=== PATIENT | male | born 1985 | race Caucasian/White ===

== ENCOUNTER 2024-12-15 18:12 | Emergency (ER) | payer BC, SELFPAY ==
[2024-12-15] VITALS (7 sets, daily range): BP systolic 169; BP diastolic 105; PULSE 80–116; RESP 16; TEMP 37.3; O2SAT 95–98; BMI 28.4
--- OUTSIDE RECORDS SUMMARY | 2024-12-15 18:16 | XMS_ITS | Clinical Summary ---
Author Organization [employer] [facility] Address [place], [place] [address] Care Team Providers Care Mate First Name Role Phone Behzad Weller MD Primary Care Provider Allergies Active Allergy Reactions Criticality Noted Date Comments Duloxetine Other - Describe In Comment Field High 03/14/2022 Temper, Anger Latex Rash,Dyspnea High 02/18/2019 Medications gemfibroziL (LOPID) 600 mg tablet Take 600 mg by mouth. 09/22/20 21 Active naloxone (Narcan) 4 mg/actuation nasal sprayIndicatio ns:Neck pain, chronic Inhale 1 [place] into affected nostril(s) each time if needed for Patient Diff To Arouse or Resp Rate < 8 / min. Additional doses may be given every 2 to 3 minutes until emergency medical assistance arrives. 2 Each 01/25/20 23 Active oxyCODONE (ROXICODONE) 5 mg immediate release tabletIndicati ons:Neck pain, chronic Take 1 Tablet (5 mg) by mouth every 6 hours if needed for Pain. 120 Tablet 09/23/20 24 Active zolpidem CR (AMBIEN CR) 12.5 mg Extended-Relea se tabletIndicati ons:Insomnia, idiopathic Take 1 Tablet (12.5 mg) by mouth at bedtime. 30 Tablet 2 09/23/20 24 Active amLODIPine (NORVASC) 10 mg tabletIndicati ons:HTN (hypertension) Take 1 Tablet (10 mg) by mouth once daily. 90 Tablet 1 09/23/20 24 Active oxyCODONE (ROXICODONE) 5 mg immediate release tabletIndicati ons:Neck pain, chronic Take 1 Tablet (5 mg) by mouth every 6 hours if needed for Pain. 120 Tablet 11/22/19 25 Active oxyCODONE (ROXICODONE) 5 mg immediate release tabletIndicati ons:Neck pain, chronic Take 1 Tablet (5 mg) by mouth every 6 hours if needed for Pain. 120 Tablet 11/04/20 24 Active tiZANidine (ZANAFLEX) 4 mg tabletIndicati ons:Muscle pain TAKE ONE AND ONE-HALF TABLETS BY MOUTH EVERY 8 HOURS NEEDED FOR MUSCLE SPASMS 45 Tablet 2 12/03/19 25 Active methylPREDNISo lone (MEDROL DOSEPAK) 4 mg tabletIndicati ons:Acute left-sided low back pain with left-sided sciatica Take by mouth as instructed per packaging. 21 Tablet 12/10/19 25 Active tiZANidine (ZANAFLEX) 4 mg tabletIndicati ons:Muscle pain TAKE ONE AND ONE-HALF TABLETS BY MOUTH EVERY 8 HOURS NEEDED FOR MUSCLE SPASMS 45 Tablet 2 09/23/20 24 025 Discontinued Active Problems Problem Noted Date Diagnosed Date Pain management contract agreement 02/03/2023 Overview (03/13/2023): Chronic neck pain Takes Oxycodone 1-2 tabs every 4 hours prn no more than 6 a day. HTN (hypertension) 07/14/2022 Generalized anxiety disorder 07/14/2022 Insomnia, idiopathic 07/14/2022 Encounters Date Type Department Care Team Description 12/15/2024 Nurse Triage [facility] [address] [place] [address] Behzad Weller MD 12/09/2024 11:46 PM CLIENT SERVICES REPRESENTATIVE - 12/10/2024 1:37 AM [facility] Emergency [facility] [address] [place] [address] Matty Rivera MD Acute left-sided low back pain with left-sided sciatica (Primary Dx); HTN (hypertension) Discharge Disposition: Home Self Care 12/09/2024 Travel 12/03/2024 Refill [facility] [address] [place] [address] Behzad Weller MD Refill Request (Tizanidine) 11/04/2024 Telephone [facility] [address] [place] [address] Behzad Weller MD Refill Request (oxyCODONE ) 10/31/2024 Refill [facility] [address] [place] [address] Behzad Weller MD Refill Request (Oxycodone, Oxycodone) 09/23/2024 1:30 PM CLIENT SERVICES REPRESENTATIVE Office Visit [address] [phone] Behzad Weller MD Medication Management 09/22/2024 Travel from Last 3 Months Immunizations Name Administration Dates Next Due COVID-19 vaccine ([employer] 30mcg/0.3mL) P F, MDV 06/14/2021 MMR 12/09/1996,05/10/1995 Td (Age >=7 Years) 07/18/2005,12/09/1996 Tdap 01/26/2020 Family History Medical History Relation Name Comments Bipolar disorder Mother of fen tanyl overdose Relation Name Status Comments Father of traumat ic injury. Mother Social History Tobacco Use Types Packs/Day Years Used Date Smoking Tobacco: Never Smokeless Tobacco: Former Chew Quit: 05/23/2023 Tobacco Cessation:Counseling Given: Not Answered Alcohol Use Standard Drinks/Week Comments Not Currently 0 (1 standard drink = 0.6 oz pure alcohol) occasionally wine, beer or likquor PHQ-2 Answer Date Recorded PHQ-2 TOTAL SCORE 2 06/06/2023 Social Connections Answer Date Recorded Do you often feel lonely or isolated from those around you? 0 09/22/2024 Financial Resource Strain Answer Date R ecorded Difficulty of Paying Living Expenses 3 09/22/2024 Difficulty of Paying Living Expenses Not on file 09/22/2024 Food Insecurity Answer Date Recorded Do you worry your food will run out before you are able to buy more? 1 09/22/2024 Transportation Needs Answer Date Record ed Does lack of transportation keep you from medica l appointments? 1 09/22/2024 Does lack of transportation keep you from work, meetings or getting things that you need? 1 09/22/2024 Housing Stability Answer Date Recorded What is your housing situation today? 1 09/22/2024 Interpersonal Safety Answer Date Record ed Are you being hit, kicked, p ushed or yelled at (see row info)? No 12/09/2024 Interpersonal Safety Abuse 12 - 18 Not on file 12/09/2024 Interpersonal Safety Ambulatory Vulnerability No t on file 12/09/2024 Utilities Answer Date Recorded Do you have trouble paying f or utilities (for example, heat, electricity, water, phone)? 1 09/22/2024 Sex and Gender Information Value Date Recorded Sex Assigned at Not on file Legal Sex Male 6:24 AM CLIENT SERVICES REPRESENTATIVE Gender Identity Not on file Sexual Orientation Not on file Obstetrics History Last Filed Vital Signs Vital Sign Reading Time Taken Comments Blood Pressure 145/124 12/10/2024 1:15 AM CLIENT SERVICES REPRESENTATIVE Pulse 89 12/10/2024 1:15 AM CLIENT SERVICES REPRESENTATIVE Temperature 37.1 C (98.7 F) 12/09/2024 11:50 PM CLIENT SERVICES REPRESENTATIVE Respiratory Rate 16 12/10/2024 1:15 AM CLIENT SERVICES REPRESENTATIVE Oxygen Saturation 98% 12/10/2024 1:15 AM CLIENT SERVICES REPRESENTATIVE Inhaled Oxygen Concentration - - Weight 98 kg (216 lb) 12/09/2024 11:53 PM CLIENT SERVICES REPRESENTATIVE Height 185.4 cm (6' 1) 12/09/2024 11:53 PM CLIENT SERVICES REPRESENTATIVE Body Mass Index 28.5 12/09/2024 11:53 PM CLIENT SERVICES REPRESENTATIVE Plan of Treatment Upcoming Encounters Date Type Department Care Team (Late st Contact Info) Description 12/16/2024 11:10 AM CLIENT SERVICES REPRESENTATIVE Office Visit [facility] [address] [place] [address] Behzad Weller MD [address] [place] [address] Health Maintenance Due Date Last Done Comments HIV for age 15-65 1999 Hepatitis C screening for age 18-79 2002 Depression screening for age 12+ 06/06/2024 06/06/2023, 06/06/2023, 06/05/2023, Additional history exists COVID-19 vaccine series ( season) 2024 06/14/2021 Influenza for age 9-49 07/20/2024 Lipids for age 35-44 09/02/2024 09/02/2019, 09/02/20 19 BMI (ht and wt on same day) for age 18+ 09/23/2025 09/23/2024, 03/05/2024, 12/05/2023, Additional history exists Tetanus booster 01/25/2030 01/26/2020, 06/21, 12/09/1996 Tdap Completed 01/26/2020 Pneumococcal series for age 6-49 Aged Out No longer eligible based on patient's age to complete this topic Procedures Procedure Name Priority Date/Time Associated Diagnosis Comments XR SPINE LUMBAR 2 VIEWS STAT 12/10/2024 12:40 AM CLIENT SERVICES REPRESENTATIVE LIPID PANEL W REFLEX MEASURED LDL Routine 09/02/2019 12:13 PM CDT Well adult exam from Last 3 Months or Most Recently Relevant to Health Maintenance Results * XR SPINE LUMBAR 2 VIEWS (12/10/2024 12:40 AM CLIENT SERVICES REPRESENTATIVE) Anatomical Region Laterality Modality LUMBAR SPINE Digital Radiogra phy 12/10/2024 12:4 3 AM CLIENT SERVICES REPRESENTATIVE Impressions 12/10/2024 12:43 AM CLIENT SERVICES REPRESENTATIVE 1. No acute osseous injuries or abnormalities are noted. Dictated by Edy Bond MD @ 12/10/2024 12:43:09 AM Dictated by: Edy Bond MD @ 12/10/2024 00:43:14 (Electronically Signed) Narrative 12/10/2024 12:43 AM CLIENT SERVICES REPRESENTATIVE For Patients: As a result of the Century Cures Act, medical imaging exams and procedure reports are released immediately into your electronic medical record. You may view this report before your referring provider. If you have questions, please contact your health care provider. INDICATION: Back pain TECHNIQUE: Lumbar spine radiograph 2 views COMPARISON: 06/02/2019 FINDINGS: Bone: No acute fractures or aggressive bone lesions are identified. Alignment is normal. Disc: Moderate degenerative disc narrowing at L5-S1 is noted and progressed since prior exam. The facet joints are unremarkable. Soft tissue: Unremarkable. No radiopaque foreign bodies are seen. Procedure Note Edy Bond MD - 12/10/2024 For Patients: As a result of the Century Cures Act, medical imagingexams and procedure reports are released immediately into your electronicmedical record. You may view this report before your referring provider.If you have questions, please contact your health care provider. INDICATION: Back pain TECHNIQUE: Lumbar spine radiograph 2 views COMPARISON: 06/02/2019 FINDINGS: Bone: No acute fractures or aggressive bone lesions are identified.Alignment is normal. Disc: Moderate degenerative disc narrowing at L5-S1 is noted andprogressed since prior exam. The facet joints are unremarkable. Soft tissue: Unremarkable. No radiopaque foreign bodies are seen. IMPRESSION: 1. No acute osseous injuries or abnormalities are noted. Dictated by Edy Bond MD @ 12/10/2024 12:43:09 AM Dictated by: Edy Bond MD @ 12/10/2024 00:43:14 (Electronically Signed) us Matty Rivera MD GENERAL IMAGING Final Res ult * (ABNORMAL) LIPID PANEL W REFLEX MEASURED LDL (09/02/2019 12:13 PM CDT) CHOLESTEROL,TOTAL 309(H) 100 - 199 mg/dL 09/02/2019 1:48 PM CDT [facility] TRIGLYCERIDES 477(H) <150 mg/dL 09/02/2019 1:48 PM CDT [facility] HDL CHOLESTEROL 50 >40 mg/dL 9 1:48 PM CDT [facility] NON-HDL CHOLESTEROL 259(H) <145 mg/dl 09/02/2019 1:48 PM CDT [facility] CHOL/HDL RATIO 6.18(H) <4.50 09/02/2019 1:48 PM CDT [facility] LDL CHOLESTEROL 9 1:48 PM CDT [facility] Comment:Invalid LDL when Tri g >400, reflexed to measured LDL PROVIDER ORDERED STATUS RANDOM 09/02/2019 1:48 PM CDT [facility] Blood BLOOD SPECIMEN / Unknown Butterfly / Unknown 09/02/2019 12:13 PM CDT 09/02/2019 12:15 PM CDT us Antony Soler MD CHEMISTRY Final R esult [facility] [address] [place] [address] from Last 3 Months or Most Recently Relevant to Health Maintenance Care Teams Mate First Relationship Specialty Start Date End Date Behzad Weller MD [address] [place] [address] PCP - General Family Practice 07/19/22
--- NOTE | 2024-12-15 18:40 | ED.BACK ---
HPI - Back Pain/Injury General Time Seen by Provider: 18:40 Date Seen: 12/15/24 Chief Complaint: Back Injury/Pain Stated Complaint: Back and L Leg pain Time Seen by Provider: 12/15/24 18:40 Source: patient and RN notes reviewed Mode of arrival: ambulatory Limitations: no limitations Related Data Home Medications ?Medication ?Instructions ?Recorded ?Confirmed amlodipine 10 mg tablet 10 mg PO DAILY 12/15/24 12/15/24 oxycodone 5 mg tablet 5 mg PO Q6H PRN pain 12/15/24 12/15/24 tizanidine 4 mg tablet 6 mg PO Q8H PRN muscle spasm 12/15/24 12/15/24 zolpidem 12.5 mg tablet,extended 12.5 mg PO QPM 12/15/24 12/15/24 release,multiphase Allergies Allergy/AdvReac Type Severity Reaction Status Date / Time latex Allergy Unknown Verified 12/15/24 18:37 Exam Const: Vital Signs, click to edit/add: Vital Signs - 24 hr 12/15/24 18:31 Temperature 99.1 F Pulse Rate [Pulse Oximeter] 116 H Respiratory Rate 16 Blood Pressure [Ri ght Upper Arm] 169/105 H Pulse Oximetry 97 Oxygen Delivery Me thod Room Air Course Vital Signs Vital signs: Initial Vital Signs Temperature 99.1 F 12/15/24 18:31 Temperature Source Temporal Artery Scan 12/15/24 18:31 Pulse Rate 116 H 12/15/24 18:31 Respiratory Rate 16 12/15/24 18:31 Blood Pressure 169/105 H 12/15/24 18:31 Blood Pressure Mean 126 H 12/15/24 18:31 Blood Pressure Position Supine 12/15/24 18:31 Pulse Oximetry 97 12/15/24 18:31 Oxygen Delivery Method Room Air 12/15/24 18:31 Vital Signs Temperature 99.1 F 12/15/24 18:31 Pulse Rate 116 H 12/15/24 18:31 Respiratory Rate 16 12/15/24 18:31 Blood Pressure 169/105 H 12/15/24 18:31 Pulse Oximetry 97 12/15/24 18:31 Oxygen Delivery Method Room Air 12/15/24 18:31 Temperature 99.1 F 12/15/24 18:31 Pulse Rate 116 H 12/15/24 18:31 Respiratory Rate 16 12/15/24 18:31 Blood Pressure 169/105 H 12/15/24 18:31 Pulse Oximetry 97 12/15/24 18:31 Oxygen Delivery Method Room Air 12/15/24 18:31 Discharge Plan Discharge Prescriptions: No Action tizanidine 4 mg tablet 6 mg PO Q8H PRN (Reason: muscle spasm) amlodipine 10 mg tablet 10 mg PO DAILY oxycodone 5 mg tablet 5 mg PO Q6H PRN (Reason: pain) zolpidem 12.5 mg tablet,ext release multiphase 12.5 mg PO QPM
--- NOTE | 2024-12-15 18:41 | ED.BACK ---
HPI - Back Pain/Injury General Time Seen by Provider: 18:42 Date Seen: 12/15/24 Chief Complaint: Back Injury/Pain Stated Complaint: Back and L Leg pain Time Seen by Provider: 12/15/24 18:40 Source: patient and RN notes reviewed Mode of arrival: ambulatory Limitations: no limitations History of Present Illness HPI Narrative: This 39-year-old male is coming in with back pain. This started this past Sunday. He just got up to make his daughters dinner, felt some strain in his low back. 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 He is getting pain down into his leg, feels it more in the front of the knee and down into the welch. It is a burning-type sensation. He feels numbness and tingling in this leg as well. Last night his noted that he seemed to be swinging trying to stand up to urinate at the toilet last night. He states he did dribble a little bit overnight becomes tearful talking about that. He did just urinate prior to coming in. He has had no bowel issues, no bowel incontinence, no difficulty going. He is a nonsmoker but does use chewing tobacco. He has no known trauma of his back, no fevers. He has chronic neck issues and has tried multiple modalities, he has tizanidine for that 4 mg, uses oxycodone 5 mg 4 times a day baseline for his neck. He is done and radiofrequency nerve ablation scope, physical therapy, many modalities and nothing has helped his neck. They did pull up his most recent MRI neck report and there is no cervical stenosis on this, he has lot of degenerative changes and some spondylolysis but no stenosis. He went to [address], had lumbar spines, he states they gave him 10 mg of oxycodone and a Medrol Dosepak. He has completed the Medrol Dosepak without relief. He does admit to alcohol use, admits that he historically maybe has used a lot to try to help with his neck pain, his notes he has not drink any alcohol the last 2 weeks which he endorses. Related Data Home Medications ?Medication ?Instructions ?Recorded ?Confirmed amlodipine 10 mg tablet 10 mg PO DAILY 12/15/24 12/15/24 oxycodone 5 mg tablet 5 mg PO Q6H PRN pain 12/15/24 12/15/24 tizanidine 4 mg tablet 6 mg PO Q8H PRN muscle spasm 12/15/24 12/15/24 zolpidem 12.5 mg tablet,extended 12.5 mg PO QPM 12/15/24 12/15/24 release,multiphase Allergies Allergy/AdvReac Type Severity Reaction Status Date / Time latex Allergy Unknown Verified 12/15/24 18:37 Review of Systems Narrative: As per HPI. PFSH PFSH Social History Smoking Status: Never smoker Do you use any of these nicotine containing products: None How often do you have a drink containing alcohol: never How often do you have six or more drinks on one occasion: Never AUDIT-C Alcohol total score: 0 Non-prescribed substance use: denies use Exam Const: Vital Signs, click to edit/add: Vital Signs - 24 hr 12/15/24 18:31 12/15/24 19:03 Temperature 99.1 F Pulse Rate [Pulse Oximeter] 116 H Respiratory Rate 16 Blood Pressure [Ri ght Upper Arm] 169/105 H Pulse Oximetry 97 97 Oxygen Delivery Me thod Room Air Napoleon is a 39-year-old male that is alert, interactive, no apparent distress, lying in bed. Sclera mildly injected without any periorbital swelling or erythema, no drainage. Pupils equal round reactive. Speech is normal. Lungs clear anteriorly, no tachypnea, no wheezing or crackles. CV regular rate and rhythm, no murmur. Abdomen is soft, nontender, no organomegaly noted. Bladder scan done by nursing staff shows 50 mL at most. He has very definite straight leg raising of his left leg just minimally off the bed causes discomfort. Strength in his toes, ankles with dorsiflex in and plantar flexion are 5/5 and symmetric. Seems to have normal light touch sensation distally. Cannot get him to sit up as he states it is too painful. Cannot get him to lift either leg off the bed at this point due to back pain. Skin is warm and dry, pulses seem to be symmetric. He has about 1 to 2+ DTRs of the patella and ankle on his right leg, cannot get reflexes on his left. Documenting provider has reviewed patient's vital signs: yes Course Course ED Course: We will get lumbar CT. He is not seeming to be in urinary retention, will monitor for urinary incontinence or further urinary retention while here. Will place an IV, did talk about pain management with him. Will give him 30 mg IV Toradol and 4 mg IV Zofran brand with 4 mg IV morphine, will be on pulse oximetry for monitoring. We discussed that I fully believe he has a lumbar radiculopathy. Need to make sure that there is no cord compression with this. We cannot do MRI imaging at this time. On his examination, I do think he can theoretically weight and does not need emergent MRI but will look at lumbar CT which is the best I can do. Will make sure that the cord look stable at this time. May need transfer if there is any concern for cord compression on the CT imaging. Reevaluation(s) Time of Reevaluation #1: 20:23 Reevaluation #1: Have reviewed with him and his his lumbar CT report. Thankfully there is no evidence of any significant canal stenosis or disc impingement. His bladder scan here had less than 50 mL. He had urinated just prior to coming in. He is showing no evidence of urinary retention or incontinence at this time. He did have some relief with the morphine and Toradol but symptoms with pain are returning. Will give him some further IV morphine prior to discharge. Discussed use of trying prednisone. I do think trying a 2nd course of steroids might be beneficial. The Medrol Dosepak did not help. He understands that the steroids may not but I think it is worthwhile trying prednisone. He has tizanidine at home. He has a follow-up appointment with his primary care provider tomorrow. They are to bring the CT report to him. We discussed baseline Tylenol and ibuprofen. He will be out of oxycodone. He takes 5 mg of oxycodone 4 times a day for his neck, has been increasing to get by with the pain for his leg. We have discussed that I certainly do feel that he has left sciatica. Vital Signs Vital signs: Initial Vital Signs Temperature 99.1 F 12/15/24 18:31 Temperature Source Temporal Artery Scan 12/15/24 18:31 Pulse Rate 116 H 12/15/24 18:31 Respiratory Rate 16 12/15/24 18:31 Blood Pressure 169/105 H 12/15/24 18:31 Blood Pressure Mean 126 H 12/15/24 18:31 Blood Pressure Position Supine 12/15/24 18:31 Pulse Oximetry 97 12/15/24 18:31 Oxygen Delivery Method Room Air 12/15/24 18:31 Vital Signs Temperature 99.1 F 12/15/24 18:31 Pulse Rate 116 H 12/15/24 18:31 Respiratory Rate 16 12/15/24 18:31 Blood Pressure 169/105 H 12/15/24 18:31 Pulse Oximetry 97 12/15/24 18:31 Oxygen Delivery Method Room Air 12/15/24 18:31 Temperature 99.1 F 12/15/24 18:31 Pulse Rate 116 H 12/15/24 18:31 Respiratory Rate 16 12/15/24 18:31 Blood Pressure 169/105 H 12/15/24 18:31 Pulse Oximetry 97 12/15/24 19:03 Oxygen Delivery Method Room Air 12/15/24 18:31 Medications Administered Medications: Discontinued Medications Generic Name Dose Route Start Last Admin Trade Name Freq PRN Reason Stop Dose Admin Ketorolac Tromethamine 30 mg 12/15/24 19:03 12/15/24 19:22 Ketorolac 30 Mg/Ml Inj IVP 12/15/24 19:04 30 mg ONCE ONE Administration Morphine Sulfate 4 mg 12/15/24 19:03 12/15/24 19:22 Morphine 4 Mg/Ml Inj IVP 12/15/24 19:04 4 mg ONCE ONE Administration Ondansetron HCl 4 mg 12/15/24 19:03 12/15/24 19:22 Ondansetron 2 Mg/Ml Inj IVP 12/15/24 19:04 4 mg ONCE ONE Administration MDM - Back Pain/Injury Imaging Data CT lumbar spine: Attestation: I have reviewed the pertinent imaging results. Radiologist's impression: Patient: GARY WARNER Facility:?[facility] Patient ID:?[id number] Site Patient ID:?[id number]. 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 CANT STAND. LEFT SCIATICA COMPARISON: None. TECHNIQUE: CT of the lumbar spine without contrast. FINDINGS: Alignment: Straightening of the lumbar lordosis. No substantial lumbar listhesis. Vertebra: There are five lumbar vertebra. No definite acute displaced fracture. Slight anterior vertebral body wedging at L1, L2, and L3. There are multilevel degenerative changes most conspicuous at L5-S1 characterized by disc height loss, osteophytosis, facet hypertrophy, and end plate degenerative irregularity. There is mild eikd-xkuvmyl-davx-right osseous neural foraminal narrowing at L5-S1. No high-grade osseous spinal canal or neural foraminal stenosis. Paraspinal muscles: Unremarkable noncontrast CT appearance. Additional findings: There is slight aortic calcification. IMPRESSION: 1. No definite acute displaced fracture. 2. Slight anterior vertebral body wedging at L1, L2, and L3 is age indeterminate in the absence of prior imaging, but is likely chronic and may be physiologic. 3. There are degenerative changes in the lumbar spine most conspicuous at L5-S1 where there is mild mrmp-dmqpzui-[id number]-right osseous neural foraminal narrowing. There is no high-grade osseous spinal canal or neural foraminal stenosis. Please note that all CT scans at this facility use dose modulation, iterative reconstruction, and/or weight-based dosing when appropriate to reduce radiation dose to as low as reasonably achievable. Dictated by Sergio Woo MD @ 12/15/2024 7:42:05 PM (Electronic Signature) Discharge Plan Discharge Clinical Impression: Lumbar radiculopathy Patient Disposition: Home, Self-Care Condition: Stable Instructions: Lumbar Radiculopathy (ED) Additional Instructions: Keep your clinic appointment with your primary care provider, bring CT report with. Have written for prednisone 20 mg twice a day for 5 days, take with food. Take Tylenol 1000 mg 3 times a day baseline for pain. Can supplement with ibuprofen 600 mg up to 4 times a day as needed for extra pain management, take with food to protect her stomach. Have written for additional oxycodone for you, can take 10 mg every 6 hours, 10 tablets given to get you through to your visit tomorrow with your primary care provider. Recommend physical therapy referral, discussed getting lumbar MRI. Activity Level: Activity as Tolerated Prescriptions: No Action tizanidine 4 mg tablet 6 mg PO Q8H PRN (Reason: muscle spasm) amlodipine 10 mg tablet 10 mg PO DAILY oxycodone 5 mg tablet 5 mg PO Q6H PRN (Reason: pain) zolpidem 12.5 mg tablet,ext release multiphase 12.5 mg PO QPM Follow Up/Referrals: Provider,Not a Local [Primary Care Provider] - Stand Alone Forms: [facility] Info Instructions
--- NOTE | 2024-12-15 18:54 | CRLHL7_ITS ---
For Patients: As a result of the Century Cures Act, medical imaging exams and procedure reports are released immediately into your electronic medical record. You may view this report before your referring provider. If you have questions, please contact your health care provider. 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 CANT STAND. LEFT SCIATICA COMPARISON: None. TECHNIQUE: CT of the lumbar spine without contrast. FINDINGS: Alignment: Straightening of the lumbar lordosis. No substantial lumbar listhesis. Vertebra: There are five lumbar vertebra. No definite acute displaced fracture. Slight anterior vertebral body wedging at L1, L2, and L3. There are multilevel degenerative changes most conspicuous at L5-S1 characterized by disc height loss, osteophytosis, facet hypertrophy, and end plate degenerative irregularity. There is mild nygu-gdkhqfv-koun-right osseous neural foraminal narrowing at L5-S1. No high-grade osseous spinal canal or neural foraminal stenosis. Paraspinal muscles: Unremarkable noncontrast CT appearance. Additional findings: There is slight aortic calcification. IMPRESSION: 1. No definite acute displaced fracture. 2. Slight anterior vertebral body wedging at L1, L2, and L3 is age indeterminate in the absence of prior imaging, but is likely chronic and may be physiologic. 3. There are degenerative changes in the lumbar spine most conspicuous at L5-S1 where there is mild ilgx-ycdgwaa-tzma-right osseous neural foraminal narrowing. There is no high-grade osseous spinal canal or neural foraminal stenosis. Please note that all CT scans at this facility use dose modulation, iterative reconstruction, and/or weight-based dosing when appropriate to reduce radiation dose to as low as reasonably achievable. Dictated by Sergio Woo MD @ 12/15/2024 7:42:05 PM (Electronically Signed)
--- OUTSIDE RECORDS SUMMARY | 2024-12-15 19:07 | XMS_ITS | Clinical Summary ---
Author Organization [facility] Address [place], [place] [address] Care Team Providers Care Director Inbound Sales Name Role Phone Behzad Weller MD Primary Care Provider Allergies Active Allergy Reactions Criticality Noted Date Comments Duloxetine Other - Describe In Comment Field High 03/14/2022 Temper, Anger Latex Rash,Dyspnea High 02/18/2019 Medications gemfibroziL (LOPID) 600 mg tablet Take 600 mg by mouth. 09/22/20 21 Active naloxone (Narcan) 4 mg/actuation nasal sprayIndicatio ns:Neck pain, chronic Inhale 1 [place] into affected nostril(s) each time if needed [...] Department Care Team Description 12/15/2024 Nurse Triage [facility] [address] [place] [address] Behzad Weller MD 12/09/2024 11:46 PM FIELD [employer] - 12/10/2024 1:37 AM [facility] Emergency [facility] [address] [place] [address] Matty Rivera MD Acute left-sided low back pain with left-sided sciatica (Primary Dx); HTN (hypertension) Discharge Disposition: Home Self Care 12/09/2024 Travel 12/03/2024 Refill [facility] [address] [place] [address] Behzad Weller MD Refill Request (Tizanidine) 11/04/2024 Telephone [facility] [address] [place] [address] Behzad Weller MD Refill Request (oxyCODONE ) 10/31/2024 Refill [facility] [address] [place] [address] Behzad Weller MD Refill Request (Oxycodone, Oxycodone) 09/23/2024 1:30 PM [employer] Office Visit [address] [address] Behzad Weller MD Medication Management 09/22/2024 Travel from Last 3 Months Immunizations Name Administration Dates Next Due COVID-19 vaccine (VYou 30mcg/0.3mL) P F, MDV 06/14/2021 MMR 12/09/1996,05/10/1995 [...] on file Legal Sex Male 6:24 AM [employer] Gender Identity Not on file Sexual Orientation Not on file Obstetrics History Last Filed Vital Signs Vital Sign Reading Time Taken Comments Blood Pressure 145/124 12/10/2024 1:15 AM [employer] Pulse 89 12/10/2024 1:15 AM [employer] Temperature 37.1 C (98.7 F) 12/09/2024 11:50 PM [employer] Respiratory Rate 16 12/10/2024 1:15 AM [employer] Oxygen Saturation 98% 12/10/2024 1:15 AM [employer] Inhaled Oxygen Concentration - - Weight 98 kg (216 lb) 12/09/2024 11:53 PM [employer] Height 185.4 cm (6' 1) 12/09/2024 11:53 PM [employer] Body Mass Index 28.5 12/09/2024 11:53 PM [employer] Plan of Treatment Upcoming Encounters Date Type Department Care Team (Late st Contact Info) Description 12/16/2024 11:10 AM [employer] Office Visit [facility] [address] [place] [address] Behzad Weller MD [address] [place] [address] Health Maintenance Due Date Last Done Comments [...] LUMBAR 2 VIEWS STAT 12/10/2024 12:40 AM [employer] LIPID PANEL W REFLEX MEASURED LDL Routine 09/02/2019 12:13 PM CDT Well adult exam from Last 3 Months or Most Recently Relevant to Health Maintenance Results * XR SPINE LUMBAR 2 VIEWS (12/10/2024 12:40 AM FIELD AUT[employer] APPRAIS[employer]) Anatomical Region Laterality Modality LUMBAR SPINE Digital Radiogra phy 12/10/2024 12:4 3 AM [employer]ELD [employer]AIS[employer] Impressions 12/10/2024 12:43 AM [employer]ELD [employer]PRAISER 1. No acute osseous injuries or abnormalities are noted. Dictated by Edy Bond MD @ 12/10/2024 12:43:09 AM Dictated by: Edy Bond MD @ 12/10/2024 00:43:14 (Electronically Signed) Narrative 12/10/2024 12:43 AM [employer]IS[employer] For Patients: As a result of the [...] - 199 mg/dL 09/02/2019 1:48 PM CDT [facility] TRIGLYCERIDES 477(H) <150 mg/dL 09/02/2019 1:48 PM CDT [facility] HDL CHOLESTEROL 50 >40 mg/dL 9 1:48 PM CDT [facility] NON-HDL CHOLESTEROL 259(H) <145 mg/dl 09/02/2019 1:48 PM CDT [facility] CHOL/HDL RATIO 6.18(H) <4.50 09/02/2019 1:48 PM CDT [facility] LDL CHOLESTEROL 9 1:48 PM CDT [facility] Comment:Invalid LDL when Tri g >400, reflexed to measured LDL PROVIDER ORDERED STATUS RANDOM 09/02/2019 1:48 PM CDT [facility] Blood BLOOD SPECIMEN / Unknown Butterfly / Unknown 09/02/2019 12:13 PM CDT 09/02/2019 12:15 PM CDT us Antony Soler MD CHEMISTRY Final R esult [facility] [address] [place] [address] from Last 3 Months or Most Recently Relevant to Health Maintenance Care Teams Director Inbound Sales Relationship Specialty Start Date End Date Behzad Weller MD [address] [place] [address] PCP - General Family Practice 07/19/22
[2024-12-15] MEDS: ONDANSETRON 2 MG/ML inj 4 MG IVP (19:22)
[2024-12-15] MEDS: MORPHINE 4 MG/ML INJ IVP (19:22)
[2024-12-15] MEDS: KETOROLAC 30 MG/ML inj IVP (19:22)
[2024-12-15] MEDS: MORPHINE 2 MG/ML inj IVP (20:57)
== END 2024-12-15 21:05 | disposition home or self-care (01) ==
PROVIDERS: Emergency Provider Family Medicine
DX: M54.16 Radiculopathy, lumbar region (principal)
CPT/HCPCS: 72131; 94761; 96374; 96375; 96376; 99284; J1885; J2270; J2405